=== PATIENT | female | born 1960 | race Caucasian/White ===

== ENCOUNTER 2017-02-18 11:04 | Emergency (ER) | payer BC ==
--- NOTE | 2017-02-18 12:10 | EDM.PDOC ---
ED HPI GENERAL MEDICAL PROBLEM - General Chief Complaint: Cardiovascular Problem Stated Complaint: FOLLOW UP FROM CLINIC EKG Time Seen by Provider: 02/18/17 11:37 Source of Information: Reports: Patient, Provider, RN Notes Reviewed History Limitations: Reports: No Limitations - History of Present Illness INITIAL COMMENTS - FREE TEXT/NARRATIVE: 56-year-old female presented to urgent care clinic earlier today with complaint of not feeling well for the past 4 days initial EKG does show bradycardia around 40 with what appears to be a disassociation of the P wave and the QRS complex. Discussed case with urgent care provider who recommended transfer to the emergency department for further evaluation CBC and CMP were done in urgent care and within normal limits she has no other complaints does not particularly complain of fatigue with exertion - Related Data Allergies Allergy/AdvReac Type Severity Reaction Status Date / Time No Known Allergies Allergy Verified 02/18/17 11:27 Home Meds: Home Meds Albuterol Sulfate [Proair Respiclick] 90 mcg IH ASDIRECTED 02/18/17 [History] Ferrous Sulfate 325 mg PO DAILY 02/18/17 [History] Naproxen Sodium [Aleve] 220 mg PO ASDIRECTED PRN 02/18/17 [History] Past Medical History Respiratory History: Reports: 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: Hematologic History: Reports: Anemia - Past Surgical History Musculoskeletal Surgical History: Reports: Arthroscopic Procedure, Other (See Below) Other Musculoskeletal Surgeries/Procedures:: knee injury Social & Family History - Caffeine Use Caffeine Use: Reports: Coffee - Recreational Drug Use Recreational Drug Use: No ED ROS GENERAL - Review of Systems Review Of Systems: See Below Constitutional: Reports: Other (Not feeling well) HEENT: Reports: No Symptoms Respiratory: Reports: No Symptoms Cardiovascular: Reports: No Symptoms GI/Abdominal: Reports: No Symptoms : Reports: No Symptoms ED EXAM, GENERAL - Physical Exam Exam: See Below Exam Limited By: No Limitations General Appearance: Alert, WD/WN, No Apparent Distress Neck: Normal Inspection, Supple, Non-Tender, Full Range of Motion Respiratory/Chest: No Respiratory Distress, Lungs Clear, Normal Breath Sounds, No Accessory Muscle Use Cardiovascular: Normal Peripheral Pulses, No Murmur, Bradycardia GI/Abdominal: Soft, Non-Tender Course - Vital Signs Last Recorded V/S: Last Vital Signs Temp 97.6 F 02/18/17 11:32 Pulse 44 L 02/18/17 12:57 Resp 20 02/18/17 12:57 BP 113/75 02/18/17 12:57 Pulse Ox 99 02/18/17 12:57 - Orders/Labs/Meds Orders: Active Orders 24 hr Category Date Time Status EKG Documentation Completion [RC] ASDIRECTED Care 02/18/17 12:06 Active EKG 12 Lead [EK] Stat Ther 02/18/17 12:06 Ordered Labs: Laboratory Tests 02/18/17 02/18/17 02/18/17 Range/Units 11:46 11:46 12:14 Magnesium 1.8 (1.8-2.4) mg/dL Troponin I < 0.016 (0.000-0.056) ng/mL TSH, Ultra Sensitive 3.577 (0.358-3.740) uIU/mL Urine Color Urine Appearance Urine pH (4.5-8.0) Ur Specific [place] (1.008-1.030) Urine Protein (NEGATIVE) mg/dL Urine Glucose (UA) (NEGATIVE) mg/dL Urine Ketones (NEGATIVE) mg/dL Urine Occult Blood (NEGATIVE) Urine Nitrite (NEGATIVE) Urine Bilirubin (NEGATIVE) Urine Urobilinogen (NORMAL) mg/dL Ur Leukocyte Esterase (NEGATIVE) Urine RBC (0-5) Urine WBC (0-5) Ur Epithelial Cells Amorphous Sediment Urine Bacteria Urine Mucus Urine Opiates Screen Negative (NEGATIVE) Ur Oxycodone Screen Negative (NEGATIVE) Urine Methadone Screen Negative (NEGATIVE) Ur Propoxyphene Screen Negative (NEGATIVE) Ur Barbiturates Screen Negative (NEGATIVE) Ur Tricyclics Screen Negative (NEGATIVE) Ur Phencyclidine Scrn Negative (NEGATIVE) Ur Amphetamine Screen Negative (NEGATIVE) U Methamphetamines Scrn Negative (NEGATIVE) Urine MDMA Screen Negative (NEGATIVE) U Benzodiazepines Scrn Negative (NEGATIVE) U Cocaine Metab Screen Negative (NEGATIVE) U Marijuana (THC) Screen Negative (NEGATIVE) 02/18/17 Range/Units 12:14 Magnesium (1.8-2.4) mg/dL Troponin I (0.000-0.056) ng/mL TSH, Ultra Sensitive (0.358-3.740) uIU/mL Urine Color Yellow Urine Appearance Clear Urine pH 9.0 H (4.5-8.0) Ur Specific [place] 1.015 (1.008-1.030) Urine Protein Negative (NEGATIVE) mg/dL Urine Glucose (UA) Normal (NEGATIVE) mg/dL Urine Ketones Negative (NEGATIVE) mg/dL Urine Occult Blood Negative (NEGATIVE) Urine Nitrite Negative (NEGATIVE) Urine Bilirubin Negative (NEGATIVE) Urine Urobilinogen Normal (NORMAL) mg/dL Ur Leukocyte Esterase Negative (NEGATIVE) Urine RBC Not seen (0-5) Urine WBC Not seen (0-5) Ur Epithelial Cells Not seen Amorphous Sediment Rare Urine Bacteria Not seen Urine Mucus Not seen Urine Opiates Screen (NEGATIVE) Ur Oxycodone Screen (NEGATIVE) Urine Methadone Screen (NEGATIVE) Ur Propoxyphene Screen (NEGATIVE) Ur Barbiturates Screen (NEGATIVE) Ur Tricyclics Screen (NEGATIVE) Ur Phencyclidine Scrn (NEGATIVE) Ur Amphetamine Screen (NEGATIVE) U Methamphetamines Scrn (NEGATIVE) Urine MDMA Screen (NEGATIVE) U Benzodiazepines Scrn (NEGATIVE) U Cocaine Metab Screen (NEGATIVE) U Marijuana (THC) Screen (NEGATIVE) Departure - Departure Time of Disposition: 13:04 Disposition: Admitted As Inpatient 66 Condition: Good Clinical Impression: Sinoatrial node dysfunction Referrals: PCP,None [Primary Care Provider] - Forms: ED Department Discharge - My Orders Last 24 Hours: My Active Orders 02/18/17 12:06 EKG Documentation Completion [RC] ASDIRECTED EKG 12 Lead [EK] Stat - Assessment/Plan Last 24 Hours: My Active Orders 02/18/17 12:06 EKG Documentation Completion [RC] ASDIRECTED EKG 12 Lead [EK] Stat Plan: Assessment Acuity = acute Site and laterality = S-A node dysfunction Etiology = unknown etiology Manifestations = bradycardia, dizziness, hypertension Location of injury = Home Lab values = magnesium, TSH, troponin all negative] Plan Discussed case with hospitalist utilization management nurse he agreed, and evaluate the patient emergency department for further evaluation and treatment Patient was in agreement with the plan all questions were answered, This note was dictated using [employer] voice recognition software please call with any questions.
[2017-02-18] MEDS ORDERED: Sodium Chloride 0.9% 10 ML Syringe FLUSH PRN (14:08)
--- NOTE | 2017-02-18 14:20 | PCM.CONS ---
H&P History of Present Illness - General Date of Service: 02/18/17 Source of Information: Patient, Family, Provider, RN Notes Reviewed History Limitations: Reports: No Limitations - History of Present Illness Initial Comments - Free Text/Narative: This patient is a 56-year-old woman who I was asked to see in the emergency department by Officer. Over the past 3 days has felt weak lightheaded and short of breath, she was seen and evaluated in urgent care and noted to have heart rate in the 40s. EKG has been obtained at the clinic and as well as at the hospital and shows intermittent sinus node dysfunction likely causing current symptoms. She denies any previous history of significant cardiac disease. Symptoms have been occurring intermittently over the past year and a half. 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: Hematologic History: Reports: Anemia - Past Surgical History Musculoskeletal Surgical History: Reports: Arthroscopic Procedure, Other (See Below) Other Musculoskeletal Surgeries/Procedures:: knee injury Social & Family History - Caffeine Use Caffeine Use: Reports: Coffee - Recreational Drug Use Recreational Drug Use: No H&P Review of Systems - Review of Systems: Review Of Systems: See Below General: Reports: Weakness, Fatigue Pulmonary: Reports: Shortness of Breath Cardiovascular: Reports: Dyspnea on Exertion, Lightheadedness Gastrointestinal: Reports: No Symptoms Exam - Exam Exam: See Below - Vital Signs Vital Signs: Last Vital Signs Temp 97.6 F 02/18/17 11:32 Pulse 44 L 02/18/17 12:57 Resp 20 02/18/17 12:57 BP 113/75 02/18/17 12:57 Pulse Ox 99 02/18/17 12:57 Weight: 140 lb 3.424 oz - Exam General: Alert, Oriented, Cooperative, Mild Distress Neck: Supple, Trachea Midline, +2 Carotid Pulse wo Bruit Lungs: Clear to Auscultation, Normal Respiratory Effort Cardiovascular: Normal S1, Normal S2, Irregular Rhythm, Bradycardia. No: Tachycardia, Systolic Murmur, Diastolic Murmur GI/Abdominal Exam: Soft, Non-Tender, No Distention, No Mass Extremities: No Pedal Edema - Patient Data Lab Results Last 24 hrs: Laboratory Results - last 24 hr 02/18/17 02/18/17 02/18/17 Range/Units 11:46 11:46 12:14 Magnesium 1.8 (1.8-2.4) mg/dL Troponin I < 0.016 (0.000-0.056) ng/mL TSH, Ultra Sensitive 3.577 (0.358-3.740) uIU/mL Urine Color Urine Appearance Urine pH (4.5-8.0) Ur Specific [place] (1.008-1.030) Urine Protein (NEGATIVE) mg/dL Urine Glucose (UA) (NEGATIVE) mg/dL Urine Ketones (NEGATIVE) mg/dL Urine Occult Blood (NEGATIVE) Urine Nitrite (NEGATIVE) Urine Bilirubin (NEGATIVE) Urine Urobilinogen (NORMAL) mg/dL Ur Leukocyte Esterase (NEGATIVE) Urine RBC (0-5) Urine WBC (0-5) Ur Epithelial Cells Amorphous Sediment Urine Bacteria Urine Mucus Urine Opiates Screen Negative (NEGATIVE) Ur Oxycodone Screen Negative (NEGATIVE) Urine Methadone Screen Negative (NEGATIVE) Ur Propoxyphene Screen Negative (NEGATIVE) Ur Barbiturates Screen Negative (NEGATIVE) Ur Tricyclics Screen Negative (NEGATIVE) Ur Phencyclidine Scrn Negative (NEGATIVE) Ur Amphetamine Screen Negative (NEGATIVE) U Methamphetamines Scrn Negative (NEGATIVE) Urine MDMA Screen Negative (NEGATIVE) U Benzodiazepines Scrn Negative (NEGATIVE) U Cocaine Metab Screen Negative (NEGATIVE) U Marijuana (THC) Screen Negative (NEGATIVE) 02/18/17 Range/Units 12:14 Magnesium (1.8-2.4) mg/dL Troponin I (0.000-0.056) ng/mL TSH, Ultra Sensitive (0.358-3.740) uIU/mL Urine Color Yellow Urine Appearance Clear Urine pH 9.0 H (4.5-8.0) Ur Specific [place] 1.015 (1.008-1.030) Urine Protein Negative (NEGATIVE) mg/dL Urine Glucose (UA) Normal (NEGATIVE) mg/dL Urine Ketones Negative (NEGATIVE) mg/dL Urine Occult Blood Negative (NEGATIVE) Urine Nitrite Negative (NEGATIVE) Urine Bilirubin Negative (NEGATIVE) Urine Urobilinogen Normal (NORMAL) mg/dL Ur Leukocyte Esterase Negative (NEGATIVE) Urine RBC Not seen (0-5) Urine WBC Not seen (0-5) Ur Epithelial Cells Not seen Amorphous Sediment Rare Urine Bacteria Not seen Urine Mucus Not seen Urine Opiates Screen (NEGATIVE) Ur Oxycodone Screen (NEGATIVE) Urine Methadone Screen (NEGATIVE) Ur Propoxyphene Screen (NEGATIVE) Ur Barbiturates Screen (NEGATIVE) Ur Tricyclics Screen (NEGATIVE) Ur Phencyclidine Scrn (NEGATIVE) Ur Amphetamine Screen (NEGATIVE) U Methamphetamines Scrn (NEGATIVE) Urine MDMA Screen (NEGATIVE) U Benzodiazepines Scrn (NEGATIVE) U Cocaine Metab Screen (NEGATIVE) U Marijuana (THC) Screen (NEGATIVE) Consult PN Assessment/Plan (1) Symptomatic bradycardia SNOMED Code(s): 12079034 Code(s): R00.1 - BRADYCARDIA, UNSPECIFIED Current Visit: Yes (2) Sinoatrial node dysfunction SNOMED Code(s): 70971636 Code(s): I49.5 - SICK SINUS SYNDROME Current Visit: Yes Problem List Initiated/Reviewed/Updated: Yes Plan: ASSESSMENT AND RECOMMENDATIONS SINUS NODE DYSFUNCTION WITH SYMPTOMATIC BRADYCARDIA-she has had difficulty with intermittent weakness, lightheadedness, and shortness of breath over the past year and a half. Symptoms have been significantly worse over the past few days. On evaluation today in urgent care she was found to have a heart rate of 40. EKG was obtained and shows a narrow complex bradycardia that is somewhat irregular. P waves are associated with the third to a half of the QRS complexes. No evidence of other P waves or obvious third degree AV block. She has no previous history of significant cardiac disease. Discussed findings and recommendations with the patient and her , she would like to have a second opinion from cardiology concerning the diagnosis and recommendations for management. Requesting Provider: TO Date Consult Requested: 02/18/17 Reason for Consult: Symptomatic bradycardia Patient History Reviewed: Yes
[2017-02-18 15:00] VITALS: BP 120/61
== END 2017-02-18 15:45 | disposition critical access hospital (66) ==
LOC: JP.ED 11:04
DX: I49.5 Sick sinus syndrome (principal); D64.9 Anemia, unspecified
CPT/HCPCS: 36415; 80305; 81001; 83735; 84443; 84484; 93005; 99285-25